=== PATIENT | female | born 1960 | race American Indian/Alaskan Native ===

== ENCOUNTER 2017-04-18 21:26 | Emergency (ER) | payer BC ==
--- NOTE | 2017-04-19 03:47 | Emergency Department Report ---
ED Animal Bite HPI - General Chief Complaint: Skin/Abscess/Foreign Body Stated Complaint: POSS BUG BITE/R FOOT/R LEG SWELLING Time Seen by Provider: 04/19/17 03:32 Source: patient, family Mode of arrival: Ambulatory Limitations: No Limitations - History of Present Illness Initial Comments: History report that she was outside yesterday and something bit her. She's reported redness and swelling to her right foot and her left upper thigh. She says she called the nurse line and they told her to clean it with peroxide and put hydrocortisone on it which she did and it didn't help. Patient says she took some Benadryl and applied ice to site which helped a little but she is having pain at 8 out of 10. She said she thought it was a spider bite but she is not sure. Tetanus vaccine is not up-to-date. Denies any numbness or tingling to extremities. Denies any swelling of throat, cough wheezing or difficulty breathing. MD Complaint: animal bite (insect bite) Onset/Timin -: days(s) Left: Thigh (red swollen and painful), Foot (red swollen and painful) Animal: other (she thinks she was bitten by a spider) Animal Control Notified: No Description: immunizations unknown (not up-to-date), appeared well Mechanism: bite Pain Description: burning, constant Severity scale (0 -10): 8 Context: other (inset bites) Associated Symptoms: erythema, rash. denies: discharge from wound, bleeding, fever, chills, loss of consciousness, cough, headache, diaphoresis, shortness of breath Treatments Prior to Arrival: antibiotic ointment - Related Data Patient Tetanus UTD: No Home Medications Medication Instructions Recorded Confirmed Last Taken Esomeprazole Magnesium [Nexium] 40 mg PO QDAY 05/10/13 05/10/13 05/09/13 09:00 Lisinopril/Hydrochlorothiazide 1 tab PO QDAY 05/10/13 05/10/13 05/09/13 09:00 [Zestoretic 20-12.5 mg] Previous Rx's Medication Instructions Recorded Last Taken Type HYDROcodone/APAP 5-325 [Oneco 1 each PO Q6HR PRN #14 tablet 05/10/13 Unknown Rx 5/325 mg] Ondansetron [Zofran] 4 mg PO Q6HR PRN #12 tablet 05/10/13 Unknown Rx Lisinopril/Hydrochlorothiazide 1 tab PO QDAY #60 tab 05/05/16 Unknown Rx [Zestoretic 20-12.5 mg] Naproxen [Naprosyn TAB] 500 mg PO BID #20 tablet 05/05/16 Unknown Rx Cephalexin [Keflex] 500 mg PO Q8HR #21 cap 04/19/17 Unknown Rx Ibuprofen [Motrin] 600 mg PO Q8H PRN #15 tablet 04/19/17 Unknown Rx Allergies Allergy/AdvReac Type Severity Reaction Status Date / Time codeine Allergy Unknown Verified 04/18/17 21:32 ED Review of Systems ROS: Stated complaint: POSS BUG BITE/R FOOT/R LEG SWELLING Other details as noted in HPI Comment: All other systems reviewed and negative Constitutional: no symptoms reported Eyes: denies: eye pain, vision change ENT: denies: ear pain, throat pain, congestion Cardiovascular: denies: chest pain, palpitations, dyspnea on exertion, edema, syncope Gastrointestinal: denies: abdominal pain, nausea, vomiting Musculoskeletal: arthralgia. denies: back pain, joint swelling, myalgia Skin: rash, change in color Neurological: denies: headache, weakness, numbness, paresthesias, confusion, abnormal gait, vertigo ED Past Medical Hx - Past Medical History Previous Medical History?: Yes Hx Hypertension: Yes Hx GERD: Yes - Surgical History Past Surgical History?: Yes Additional Surgical History: bowel obstruction. hysterectomy - Family History Family history: hypertension - Social History Smoking Status: Never Smoker Substance Use Type: Alcohol Other Social History: single - Medications Home Medications: Home Medications Medication Instructions Recorded Confirmed Last Taken Type Esomeprazole Magnesium [Nexium] 40 mg PO QDAY 05/10/13 05/10/13 05/09/13 09:00 History HYDROcodone/APAP 5-325 [Oneco 1 each PO Q6HR PRN #14 tablet 05/10/13 Unknown Rx 5/325 mg] Lisinopril/Hydrochlorothiazide 1 tab PO QDAY 05/10/13 05/10/13 05/09/13 09:00 History [Zestoretic 20-12.5 mg] Ondansetron [Zofran] 4 mg PO Q6HR PRN #12 tablet 05/10/13 Unknown Rx Lisinopril/Hydrochlorothiazide 1 tab PO QDAY #60 tab 05/05/16 Unknown Rx [Zestoretic 20-12.5 mg] Naproxen [Naprosyn TAB] 500 mg PO BID #20 tablet 05/05/16 Unknown Rx Cephalexin [Keflex] 500 mg PO Q8HR #21 cap 04/19/17 Unknown Rx Ibuprofen [Motrin] 600 mg PO Q8H PRN #15 tablet 04/19/17 Unknown Rx ED Physical Exam - General Limitations: No Limitations General appearance: alert, in no apparent distress - Head Head exam: Present: atraumatic, normocephalic, normal inspection - Eye Eye exam: Present: normal appearance, PERRL, EOMI. Absent: periorbital swelling , periorbital tenderness Pupils: Present: normal accommodation - ENT ENT exam: Present: normal exam, normal orophraynx, mucous membranes moist, TM's normal bilaterally, normal external ear exam - Neck Neck exam: Present: normal inspection, full ROM. Absent: tenderness, lymphadenopathy - Expanded Neck Exam Expanded Neck exam: Absent: tenderness, midline deformity, anterior neck swelling, tracheal deviation - Respiratory Respiratory exam: Present: normal lung sounds bilaterally. Absent: respiratory distress, wheezes, rales, rhonchi, stridor, chest wall tenderness - Cardiovascular Cardiovascular Exam: Present: regular rate, normal rhythm, normal heart sounds - Extremities Exam Extremities exam: Present: normal inspection, full ROM, tenderness (right foot dorsal aspect), normal capillary refill, pedal edema (right foot), calf tenderness, other (no clubbing or cyanosis. No neurovascular compromise. +2 pulses in all extremities. Joints are normal with normal range of motion. Right foot with redness and mild swelling and tender to palpate with small pinpoint point of entry to Center erythema.). Absent: joint swelling - Back Exam Back exam: Present: normal inspection, full ROM. Absent: tenderness, rash noted - Neurological Exam Neurological exam: Present: alert, oriented X3, normal gait, reflexes normal. Absent: motor sensory deficit - Psychiatric Psychiatric exam: Present: normal affect, normal mood - Skin Skin exam: Present: warm, dry, intact, rash, erythema, urticaria - Expanded Skin Exam Expanded Distribution of rash: RLE (right foot), LLE (left proximal anterior thigh) Description of rash: Present: tenderness, erythematous, swelling, urticarial. Absent: vesicular, blisters, petechial, purpuic, crusting, discharge, fluctuant , indurated ED Course Vital Signs 04/18/17 21:32 Temperature 98.6 F Pulse Rate 94 H Respiratory 18 Rate Blood Pressure 135/85 O2 Sat by Pulse 99 Oximetry - Reevaluation(s) Reevaluation #1: 04/19/17 04:26 Patient given Motrin 800 mg by mouth and boostrix 0.5 mL emergency room. 04/19/17 04:27 Critical care attestation.: If time is entered above; I have spent that time in minutes in the direct care of this critically ill patient, excluding procedure time. ED Disposition Clinical Impression: Cellulitis of multiple sites of lower extremity, Arthralgia of multiple sites Insect bite of multiple sites of lower extremity with local reaction Qualifiers: Encounter type: initial encounter Laterality: unspecified laterality Qualified Code(s): S80.869A - Insect bite (nonvenomous), unspecified lower leg, initial encounter; W57.XXXA - Bitten or stung by nonvenomous insect and other nonvenomous arthropods, initial encounter Disposition: DC-01 TO HOME OR SELFCARE Is pt being admited?: No Does the pt Need Aspirin: No Condition: Stable Instructions: Cellulitis (ED), Insect Bite or Sting (ED), Arthralgia (ED) Additional Instructions: Please follow. Primary care physician in 2 days Please take antibiotic as prescribed Motrin for pain. Keep affected areas clean and dry Prescriptions: Cephalexin [Keflex] 500 mg PO Q8HR #21 cap Ibuprofen [Motrin] 600 mg PO Q8H PRN #15 tablet PRN Reason: Pain Referrals: PRIMARY CARE [Primary Care Provider] - 04/21/17 Forms: Work/School Release Form(ED) ED Medical Decision Making - Medical Decision Making ED course: Patient has status post insect bite yesterday reported in redness and swelling to right foot and left upper thigh. She was found to have cellulitis secondary to insect bite to her left upper thigh and right foot. Patient was given Boostrix 0.5 mls in emergency room along with Rocephin 1 g IM. Patient with patient given instructions and diagnosis and treatment plan and she voiced understanding. She is to follow-up wit her from primary care physician in 2 days or to return to the emergency room if redness and swelling to her right foot and left thigh increases. Assessment/plan 1. Insect bites multiple sites 2. Cellulitis multiple sites to include right foot and left thigh 3 .arthralgia multiple sites Patient discharged home with prescription for Keflex and Motrin and to follow up with her primary care physician in 2 days.
[2017-04-19] MEDS ORDERED: ROCEPHIN IM STA (03:49)
[2017-04-19] MEDS ORDERED: XYLOCAINE 1% MPF 5 mL INFILTRATI ONE (03:49)
[2017-04-19] MEDS ORDERED: BOOSTRIX IM ONE ×2 (04:40→04:45)
[2017-04-19 04:58] VITALS: BP 107/64
== END 2017-04-19 04:57 | disposition home or self-care (01) ==
LOC: ED 21:26
DX: L03.116 Cellulitis of left lower limb (principal); L03.115 Cellulitis of right lower limb; S80.862A Insect bite (nonvenomous), left lower leg, initial encounter; S80.861A Insect bite (nonvenomous), right lower leg, initial encounter; I10 Essential (primary) hypertension; K21.9 Gastro-esophageal reflux disease without esophagitis; Z88.6 Allergy status to analgesic agent; W57.XXXA Bitten or stung by nonvenomous insect and other nonvenomous arthropods, initial encounter; Y93.89 Activity, other specified; Y92.89 Other specified places as the place of occurrence of the external cause; Y99.8 Other external cause status
CPT/HCPCS: 90471; 90715; 96372; 99282; J0696

== ENCOUNTER 2021-11-04 13:40 | Outpatient (CLI) | payer BC ==
--- NOTE | 2021-11-06 09:23 | Mammography Report ---
DIGITAL SCREENING MAMMOGRAM WITH CAD, 11/04/2021 CLINICAL INFORMATION / INDICATION: Routine screening mammography. SCREENING MAMMO Z12.31 TECHNIQUE: Digital bilateral 2D mammography was obtained in the craniocaudal and mediolateral obliqu e projections. This examination was interpreted with the benefit of Computer-Aided Detection analysis . COMPARISON: 03/12/2020, 02/13/2019 FINDINGS: Breast Density: The breasts are heterogeneously dense, which may obscure small masses. No dominant mass, suspicious calcifications, or architectural distortion in either breast. There is a biopsy marker on the left. IMPRESSION: No mammographic evidence of malignancy. Follow up recommendation: Routine yearly BI-RADS Category 2: BENIGN. A "normal" or negative report should not discourage follow up or biopsy of a clinically significant f inding. A written summary of these findings will be mailed to the patient. The patient will be entered into a mammography reporting system which will generate a reminder letter for the patient's next appointmen t at the appropriate interval. The [employer] recommends yearly mammograms starting at age 40 and continuing as l mason as a woman is in good health. Breast MRI is recommended for women with an approximate 20-25% or greater lifetime risk of breast cancer, including women with a strong family history of breast or ova eusebia cancer or who have been treated for Hodgkin's disease. Signer Name: Tobi Beal MD Signed: 11/06/2021 9:18 AM Workstation Name: [employer]
== END 2021-11-04 13:41 | disposition home or self-care (01) ==
LOC: SPVWC 13:40
PROVIDERS: ATTEND Internal Medicine
DX: Z12.31 Encounter for screening mammogram for malignant neoplasm of breast (principal)
CPT/HCPCS: 77067